=== PATIENT | male | born 1945 | race Caucasian/White ===

== ENCOUNTER → 2019-07-07 08:23 | Outpatient (BNVA) | payer MEDICARE, SELFPAY | PROVIDERS: Family Provider Family Medicine; PCP Family Medicine; Visit Provider Urology | DX: N40.1 Benign prostatic hyperplasia with lower urinary tract symptoms (principal); N39.9 Disorder of urinary system, unspecified; E29.1 Testicular hypofunction; C61 Malignant neoplasm of prostate; R39.9 Unspecified symptoms and signs involving the genitourinary system | CPT/HCPCS: 81001; 84153 ==

== ENCOUNTER → 2020-01-05 07:46 | Outpatient (BNVA) | payer MEDICARE, SELFPAY | PROVIDERS: Family Provider Family Medicine; PCP Family Medicine; Visit Provider Urology | DX: C61 Malignant neoplasm of prostate (principal); E29.1 Testicular hypofunction; R39.9 Unspecified symptoms and signs involving the genitourinary system | CPT/HCPCS: 81001; 84153 ==

== ENCOUNTER → 2020-07-10 07:58 | Outpatient (BNVA) | payer MEDICARE, SELFPAY | PROVIDERS: Family Provider Family Medicine; PCP Family Medicine; Visit Provider Urology | DX: C61 Malignant neoplasm of prostate (principal); R39.9 Unspecified symptoms and signs involving the genitourinary system; E29.1 Testicular hypofunction | CPT/HCPCS: 81003; 84153 ==

== ENCOUNTER → 2021-01-08 07:56 | Outpatient (BNVA) | payer MEDICARE, SELFPAY | PROVIDERS: Family Provider Family Medicine; PCP Family Medicine; Visit Provider Urology | DX: R97.20 Elevated prostate specific antigen [PSA] (principal); R39.9 Unspecified symptoms and signs involving the genitourinary system; C61 Malignant neoplasm of prostate; E29.1 Testicular hypofunction | CPT/HCPCS: 81003; 84153 ==

== ENCOUNTER 2022-01-10 07:07 | Outpatient (CLI) | payer MEDICARE, SELFPAY ==
[2022-01-10 08:21] LABS: Prostate Specific AG Urology 0.03 ng/mL (0-4)
== END 2022-01-10 07:08 | disposition home or self-care (01) ==
LOC: LAB 07:08
PROVIDERS: PCP Family Medicine; Visit Provider Urology
DX: C61 Malignant neoplasm of prostate (principal); R39.9 Unspecified symptoms and signs involving the genitourinary system
CPT/HCPCS: 36415; 51798; 81003; 84153; 99213

== ENCOUNTER → 2023-11-07 07:53 | Outpatient (BNVA) | payer MEDICARE, SELFPAY | PROVIDERS: PCP Registered Nurse; Visit Provider Nurse Practitioner Family | DX: L57.0 Actinic keratosis (principal); L82.1 Other seborrheic keratosis; D22.39 Melanocytic nevi of other parts of face; L91.8 Other hypertrophic disorders of the skin; B35.1 Tinea unguium | CPT/HCPCS: 17000; 99203 ==

== ENCOUNTER 2025-01-24 11:37 | Emergency (ER) | payer MEDICARE, SELFPAY ==
--- OUTSIDE RECORDS SUMMARY | 2024-06-17 03:50 | XMS_ITS ---
Author Organization [facility] Address [address] [place] [address] Care Team Providers Care Fbi Sharpshooter Name Role Phone Renu Shook Primary Care Provider Krish Gonzalez Unavailable [phone] REASON FOR VISIT RT WRIST Encounters Encounter Location Date Provider Diagnosis [facility] [address] [place] [address], [place] [address] 06/17/2024 Krish Coles Plan Of Treatment No Information Progress Notes * Pavel NAVAeDOB: [birth year] (79 yo M)Acc No.[id number]:06/17/2024 Patient: Janusz Teran Provider: Whit Coles M.D. :1945 A ge:78 Y S ex:Male Date:06/17/2024 Address:[address] [place], [place] [phone] Pcp:VANGIE Gauthier Subjective: * Chief Complaints: * R T WRIST * Electronic signature of Etienne Coles MD on 01/24/2025 at 11:44 AM CDT Sign off status: Pending * Provider: Whit Coles M.D. Date: 06/17/2024 Generated for Printi ng/Faxing/eTransmitting on: 0 01/24/2025 11:44 AM CDT
--- OUTSIDE RECORDS SUMMARY | 2024-08-06 04:50 | XMS_ITS ---
Author Organization [facility] Address [address] [place] [address] Care Team Providers Care Retail Coverage Merchandiser Lead Name Role Phone Renu Shook Primary Care Provider Krish Gonzalez Unavailable [phone] REASON FOR VISIT RT WRIST Encounters Encounter Location Date Provider Diagnosis [facility] [address] [place] [address] 08/06/2024 Krish Coles Plan Of Treatment No Information Progress Notes * BRANDYPrincexaviereDOB: [birth year] (79 yo M)Acc No.[id number]:08/06/2024 Progress Notes Patient: Janusz Teran Provider: Whit Coles M.D. :1945 A ge:78 Y S ex:Male Date:08/06/2024 Address:[address] [place], [place] [phone] Pcp:VANGIE Gauthier Subjective: * Chief Complaints: * R T WRIST Care Plan Details* * Electronic signature of Etienne Coles MD on 01/24/2025 at 11:44 AM CDT Sign off status: Pending * Provider: Whit Coles M.D. Date: 08/06/2024 Generated for Printi ng/Faxing/eTransmitting on: 0 01/24/2025 11:44 AM CDT
[2025-01-24 11:38] VITALS: BP 171/77; PULSE 57; TEMP 36.7; O2SAT 98
--- NOTE | 2025-01-24 11:44 | ECG_ITS ---
[facility]: 2025-01-24 Pat Name: Janusz German Department: Room: Gender: Male Environmental Technician: : 1945 Requested By: Hamilton Henriquez Order Number: [id number] Dorie MD: Russ Ivy M.D. Measurements Intervals [place] Rate: 56 P: 52 AL: 149 QRS: -15 QRSD: 141 T: 148 QT: 445 QTc: 431 Interpretive Statements SINUS BRADYCARDIA POSSIBLE LEFT ATRIAL ENLARGEMENT [-0.1mV P-WAVE IN V1/V2] LEFT BUNDLE BRANCH BLOCK [120+ ms QRS DURATION, 80+ ms Q/S IN V1/V2, 85+ ms R IN I/aVL/V5/V6] INTERPRETATION BASED ON A DEFAULT AGE OF 40 YEARS No previous ECG available for comparison Electronically Signed On 01-26-2025 20:18:45 CDT by Russ Ivy M.D. [email or web address]
--- OUTSIDE RECORDS SUMMARY | 2025-01-24 11:44 | XMS_ITS | Clinical Summary ---
Author Organization [facility] Address [address] [facility] Attn: Epic [place] [address] Care Team Providers Care Pointer Machine Operator Name Role Phone Haroldo Moran Primary Care Provider [phone] Allergies No known active allergies Medications losartan (COZAAR) 25 mg tabletIndications: Essential (primary) hypertension TAKE 1 TABLET BY MOUTH EVERY DAY 100 Tablet 3 5 Active lovastatin (MEVACOR) 20 mg tabletIndications: Mixed hyperlipidemia TAKE 1 TABLET BY MOUTH DAILY WITH SUPPER. 100 Tablet 3 5 Active memantine (NAMENDA) 5 mg TabletIndications: Dementia without behavioral disturbance (CMS/HCC) Take 1 Tablet (5 mg) by mouth daily. 30 Tablet 2 5 Active memantine (NAMENDA) 5 mg TabletIndications: Dementia without behavioral disturbance (CMS/HCC) Take 1 Tablet (5 mg) by mouth daily. 30 Tablet 2 5 12/29/19 25 Discontinu ed(Reorder ) Active Problems Problem Noted Date Diagnosed Date Essential (primary) hypertension 01/10/2024 Mixed hyperlipidemia 01/10/2024 History of prostate cancer 01/10/2024 Encounters Date Type Department Care Team Description 01/07/2025 Refill [facility] [address] [address] Renu Almaraz, VANGIE Essential (primary) hypertension; Mixed hyperlipidemia 01/05/2025 External Device Data STL ABSTRACTION Provider, Abstract 01/04/2025 External Device Data STL ABSTRACTION Provider, Abstract 12/30/2024 Results Follow-Up [facility] [address] [phone] Renu Almaraz FNP COMPREHENSIVE METABOLIC PANEL 12/30/2024 Results Follow-Up [facility] [address] [phone] Renu Almaraz FNP PSA, CBC WITH DIFFERENTIAL, LIPID PANEL 12/28/2024 8:00 AM CDT Office Visit [facility] [address] [address] Renu Almaraz FNP Mixed hyperlipidemia (Primary Dx); Essential (primary) hypertension; Dementia without behavioral disturbance (CMS/HCC) 12/28/2024 Orders Only Initial Department [address] [facility] [address] [place]RAEL: [place] [address] Provider, Historical 12/22/2024 External Device Data STL ABSTRACTION Provider, Abstract 12/02/2024 External Device Data STL ABSTRACTION Provider, Abstract 12/01/2024 External Device Data STL ABSTRACTION Provider, Abstract 12/01/2024 External Device Data STL ABSTRACTION Provider, Abstract 11/03/2024 External Device Data STL ABSTRACTION Provider, Abstract from Last 3 Months Immunizations Immunization Administration Dates Next Due (PREVNAR 13)(6 WKS UP) PNEUM OCOCCAL CONJUGATE (PCV13) 0.5 ML, IM 05/29/2017 (PREVNAR 20)(6 WKS UP) PNEUM OCOCCAL CONJUGATE VACCINE 20-VALENT (PCV20), POLYSACCHARIDE DRE879 CONJUGATE, ADJUVANT 0.5 ML (PF) IM 07/12/2024 Influenza Seasonal Unspecifi ed Formulation IM 03/06/2023,02/15/2022,02/16/2021,04/10 Family History Medical History Relation Name Comments Emphysema Father Alzheimer's Disease Mother Diabetes Sister Relation Name Status Comments Father Mother Sister Social History Tobacco Use Types Packs/Day Years Used Date Smoking Tobacco: Former Cigarettes 2 38.4 0 05/19/1959 - 09/25/1997 Smokeless Tobacco: Never Tobacco Cessation:Counseling Given: Not Answered Alcohol Use Standard Drinks/Week Comments Yes 0 (1 standard drink = 0.6 oz pur e alcohol) very little Sex and Gender Information Value Date Recorded Sex Assigned at Not on file Legal Sex Male 7:34 AM CARE AID Gender Identity Not on file Sexual Orientation Not on file Last Filed Vital Signs Vital Sign Reading Time Taken Comments Blood Pressure 122/70 12/28/2024 8:00 AM CDT Pulse 80 12/28/2024 8:00 AM CDT Temperature 36.5 C (97.7 F) 12/28/2024 8:00 AM CDT Respiratory Rate 16 12/28/2024 8:00 AM CDT Oxygen Saturation 99% 12/28/2024 8:00 AM CDT Inhaled Oxygen Concentration - - Weight 77.7 kg (171 lb 3.2 oz) 12/28/2024 8:00 A M CDT Height 177.8 cm (5' 10 ) 12/28/2024 8:00 AM CDT Body Mass Index 24.56 12/28/2024 8:00 AM CDT Plan of Treatment Upcoming Encounters Date Type Department Care Team (Late st Contact Info) Description 03/30/2025 2:20 PM CARE AID Office Visit [facility] [address] [place] [phone] Haroldo Moran, [address] [phone] Health Maintenance Due Date Last Done Comments DTAP/TDAP/TD VACCINES (1 - Tdap) 09/15/1962 ZOSTER VACCINE (1 of 2) 09/15/1993 RSV VACCINE (60+ or ) (1 - 1-dose 75+ series) 09/15/2018 INFLUENZA VACCINE (#1) 2024 3, 02/15/2022, 02/16/2021, Additional history exists COVID-19 Vaccine (2 - 2024-2 6 season) 2025 10/06/2020 [place] Preventative Visit/Annual Wellness Visit Completed 07/12/2024 PNEUMOCOCCAL VACCINE 50+ YEARS Completed 07/12/2024 , 05/29/2017 Procedures Procedure Name Priority Date/Time Associated Diagnosis Comments LIPID PANEL Routine 12/28/2024 8:36 AM CDT CBC WITH DIFFERENTIAL Routine 12/28/2024 8:36 AM CDT PSA Routine 12/28/2024 8:36 AM CDT COMPREHENSIVE METABOLIC PANEL Routine 12/28/2024 8:35 AM CDT Essential (primary) hypertension from Last 3 Months Results * (ABNORMAL) CBC WITH DIFFERENTIAL (12/28/2024 8:36 AM CDT) Pathologist [facility] WBC 5.1 3.8 - 10.8 Thousand/u L [facility] RBC 4.36 4.20 - 5.80 Million/uL [facility] HEMOGLOBIN 13.0(L) 13.2 - 17.1 g/dL [facility] HEMATOCRIT 39.7 38.5 - 50.0 % [facility] MCV 91.1 80.0 - 100.0 fL [facility] MCH 29.8 27.0 - 33.0 pg [facility] MCHC 32.7 32.0 - 36.0 g/dL [facility] Comment: For adults, a slight decrease in the calculated MCHC value (in the range of 30 to 32 g/dL) is most likely not clinically significant; however, it should be interpreted with caution in correlation with other red cell parameters and the patient's clinical condition. RDW 13.9 11.0 - 15.0 % [facility] PLATELETS 148 140 - 400 Thousand/u L [facility] MPV 10.7 7.5 - 12.5 fL [facility] NEUTROPHIL ABSOLUTE 3,820 1,500 - 7,800 cells/uL [facility] LYMPHOCYTE ABSOLUTE 882 850 - 3,900 cells/uL [facility] MONOCYTE ABSOLUTE 306 200 - 950 cells/uL [facility] EOSINOPHIL ABSOLUTE 82 15 - 500 cells/uL [facility] BASOPHILS ABSOLUTE 10 0 - 200 cells/uL [facility] NEUTROPHIL 74.9 % [facility] LYMPHOCYTES 17.3 % [facility] MONOCYTE 6.0 % [facility] EOSINOPHILS 1.6 % [facility] BASOPHILS 0.2 % [facility] Comment: FASTING:YES FASTING: YES Test Performed at: [facility] [address] [address], [place] [address] ShaylaRadha Quigley MD 12/28/2024 8:36 AM CDT 12/28/2024 8:37 AM CDT Renu FELIXP HEMATOLOGY ORDERABLES Final R esult Performing Organization Address City/[facility]/ZIP Co de Phone Number [facility] [phone] [facility] [address] [place] [address] * PSA (12/28/2024 8:36 AM CDT) PSA 0.05 < OR = 4.00 ng/mL [facility] Comment: The total PSA value from this assay system is standardized against the WHO standard. The test result will be approximately 20% lower when compared to the equimolar-standardized total PSA (Dayna Alton). Comparison of serial PSA results should be interpreted with this fact in mind. This test was performed using the Siemens chemiluminescent method. Values obtained from different assay methods cannot be used interchangeably. PSA levels, regardless of value, should not be interpreted as absolute evidence of the presence or absence of disease. FASTING:YES FASTING: YES Test Performed at: [facility] [address] [facility] [place] [address] [facility] Quigley MD 12/28/2024 8:36 AM CDT 12/28/2024 8:37 AM CDT Renu FELIXP CHEMISTRY ORDERABLES Final Re sult [facility] [phone] [facility] [address] [facility] [place] [address] * LIPID PANEL (12/28/2024 8:36 AM CDT) CHOLESTEROL 175 <200 mg/dL [facility] HDL 64 > OR = 40 mg/dL [facility] TRIGLYCERIDE 109 <150 mg/dL [facility] LDL CALCULATED 90 mg/dL (calc) [facility] Comment: Reference range: <100 Desirable range <100 mg/dL for primary prevention; <70 mg/dL for patients with CHD or diabetic patients with > or = 2 CHD risk factors. LDL-C is now calculated using the Paola calculation, which is a validated novel method providing better accuracy than the Friedewald equation in the estimation of LDL-C. Antonio SS et al. ANA. 2013;310(19): 3461-0206 (http://education.Docracy/faq/JMF331) CHOL/HDL RATIO 2.7 <5.0 (calc) [facility] NON-HDL CHOLESTEROL 111 <130 mg/dL (calc) [facility] Comment: For patients with diabetes plus 1 major ASCVD risk factor, treating to a non-HDL-C goal of <100 mg/dL (LDL-C of <70 mg/dL) is considered a therapeutic option. FASTING:YES FASTING: YES Test Performed at: [facility] [address] [place] [phone] Soren Quigley MD 12/28/2024 8:36 AM CDT 12/28/2024 8:37 AM CDT us Renu Almaraz GATE SERVICES SUPERVISOR CHEMISTRY ORDERABLES Final Re sult [facility] [phone] [facility] [address] * COMPREHENSIVE METABOLIC PANEL (12/28/2024 8:35 AM CDT) GLUCOSE 93 65 - 99 mg/dL [facility] Comment: Fasting reference interval BUN 16 7 - 25 mg/dL [facility] CREATININE 1.15 0.70 - 1.22 mg/dL [facility] GFR 64 > OR = 60 mL/min/1. 73m2 [facility] BUN/CREAT RATIO SEE NOTE: 6 - 22 (calc) [facility] Comment: Not Reported: BUN and Creatinine are within reference range. SODIUM 140 135 - 146 mmol/L [facility] POTASSIUM 4.3 3.5 - 5.3 mmol/L [facility] CHLORIDE 106 98 - 110 mmol/L [facility] CO2 27 20 - 32 mmol/L [facility] CALCIUM 9.3 8.6 - 10.3 mg/dL [facility] TOTAL PROTEIN 6.4 6.1 - 8.1 g/dL [facility] ALBUMIN 4.2 3.6 - 5.1 g/dL [facility] GLOBULIN 2.2 1.9 - 3.7 g/dL (calc) [facility] ALBUMIN/GLOBULIN RATIO 1.9 1.0 - 2.5 (calc) [facility] BILIRUBIN TOTAL 0.8 0.2 - 1.2 mg/dL [facility] ALKALINE PHOSPHATASE 49 35 - 144 U/L [facility] AST 15 10 - 35 U/L [facility] ALT 11 9 - 46 U/L [facility] Comment: FASTING:YES FASTING: YES Test Performed at: [facility] [address] [address] [address] Soren Quigley MD Blood 12/28/2024 8:35 AM CDT 12/28/2024 8:35 AM CDT us Renu Almaraz GATE SERVICES SUPERVISOR CHEMISTRY ORDERABLES Final Re sult [facility] [phone] [facility] [address] [address] [place] [phone] from Last 3 Months Insurance [employer] PPO MCR Advance Directives For more information, please contact: [phone] Documents on File Type Date Recorded 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
--- OUTSIDE RECORDS SUMMARY | 2025-01-24 11:44 | XMS_ITS | Encounter Summary ---
Author Organization [facility] Address [address] [place] [address] Care Team Providers Care Class A Lineman Name Role Phone Haroldo Moran DO Primary Care Provider Encounter Details Date Type Department Care Team (Late st Contact Info) Description 12/30/2024 Results Follow-Up [facility] [address] [phone] Renu Almaraz, SOLE CONDITIONER [address] [place] [phone] PSA, CBC WITH DIFFERENTIAL, LIPID PANEL Social History Tobacco Use Types Packs/Day Years Used Date Smoking Tobacco: Former Cigarettes 2 38.4 0 05/19/1959 - 09/25/1997 Smokeless Tobacco: Never Alcohol Use Standard Drinks/Week Comments Yes 0 (1 standard drink = 0.6 oz pur e alcohol) very little Sex and Gender Information Value Date Recorded Sex Assigned at Not on file Legal Sex Male 7:34 AM WEFT 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 Gender Identity Not on file Sexual Orientation Not on file documented as of this encounter Plan of Treatment Upcoming Encounters Date Type Department Care Team (Late st Contact Info) Description 03/30/2025 2:20 PM WEFT 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 Office Visit [address] [phone] Haroldo Moran DO [address] [place] [phone] documented as of this encounter Visit Diagnoses Not on filedocumented in this encounter Care Teams Class A Lineman Relationship Specialty Start Date End Date Haroldo Moran DO [address] [place] [address] PCP - General Family Practice 01/12/24 documented as of this encounter
--- OUTSIDE RECORDS SUMMARY | 2025-01-24 11:44 | XMS_ITS | Encounter Summary ---
Author Organization [facility] Address [address] [place] [address] Care Team Providers Care Surveillance Specialist Name Role Phone Haroldo Moran DO Primary Care Provider [phone] Encounter Details Date Type Department Care Team (Latest Contact Info) Description 12/30/2024 Results Follow-Up [facility] [address] [phone] Renu Almaraz, SUPERVISOR PAPER PRODUCTS [address] [place] [phone] COMPREHENSIVE METABOLIC PANEL Social History Tobacco Use Types Packs/Day Years Used Date Smoking Tobacco: Former Cigarettes 2 38.4 0 05/19/1959 - 09/25/1997 Smokeless Tobacco: Never Alcohol Use Standard Drinks/Week Comments Yes 0 (1 standard drink = 0.6 oz pur e alcohol) very little Sex and Gender Information Value Date Recorded Sex Assigned at Not on file Legal Sex Male 7:34 AM FORESTRY FACULTY 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 Gender Identity Not on file Sexual Orientation Not on file documented as of this encounter Plan of Treatment Upcoming Encounters Date Type Department Care Team (Late st Contact Info) Description 03/30/2025 2:20 PM FORESTRY FACULTY MEMBER Office Visit [facility] [address] [phone] Haroldo Moran DO [address] [place] [phone] documented as of this encounter Visit Diagnoses Not on filedocumented in this encounter Care Teams Surveillance Specialist Relationship Specialty Start Date End Date Haroldo Moran DO [address] [place] [address] PCP - General Family Practice 01/12/24 documented as of this encounter
--- OUTSIDE RECORDS SUMMARY | 2025-01-24 11:45 | XMS_ITS | Patient Health Record ---
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 Name Role Phone Renu Shook Primary Care Provider Wai Coles Any Unavailable [phone] UniqueArsh padilla Unavailable [phone] Alirhayim Kelvin Unavailable [phone] Allergies No Known Allergies Results Component Value Reference Range Flag Notes Basic Metabolic Panel (BMP) [id number] Reviewed date:02/16/2024 04:40:31 PM Interpretation: Performing Lab: Notes/Report: PRESURGICAL TESTING;DIAGNOSIS; HYPERTENSION Sodium 139 136-145 MMOL/L Potassium 4.2 3.5-5.1 MMOL/L Chloride 107 98-107 MMOL/L CO2 24.9 20.0-31.0 MMOL/L Glucose Serum 97 71-110 MG/DL Testing p erformed at [facility], [address] [place] [address] [place] [address]. CLIA ID#: [id number] BUN 14 7-21 MG/DL Creat 1.22 .57-1.17 MG/DL HI W-mxwmuj-e-benzoquino ne imine (NAPQI) is a metabolite of acetaminophen, NAPQI concentrations of apparoximately 10 mg/L correlation to toxic levels of acetaminophen demonstrates a greater than or equil to 10% change in results. NAPQI concentrations greater than this may lead to falsely depressed results for patient samples. Use of this assay is not recommended for patients undergoing treatment with phenindione, due to the potential for falsely depressed results. GFR 59.8 NA Calculation pe rformed from GFR calculator provided by the [employer]. Glomerular Filtration rate(GRF) is the best overall index of kidney function. Normal GFR varies according to age,sex, body size, and declines with age. The National Kid[employer] Foundation recommends using the CKD-EPI Creatinine Equation(2020) to estimate GFR. Anion Gap 11 5-15 BUN/Creat Ratio 11.5 12.0-20.0 % LOW Calcium 9.2 8.7-10.4 MG/DL Osmo Serum,Calculated 288 280-300 MOSM/KG CBC w\ Auto Diff 20024 Reviewed date:02/16/2024 04:40:31 PM Interpretation: Performing Lab: Notes/Report: PRESURGICAL TESTING;DIAGNOSIS; HYPERTENSION WBC 4.8 4.5-11.0 X10'3 RBC 4.58 4.50-5.90 X10'6 Hgb 13.6 13.5-17.5 G/DL Hct 39.4 41.0-53.0 % LOW MCV 86.0 80.0-100.0 FL MCH 29.7 27.0-31.0 PG MCHC 34.5 31.0-37.0 G/DL Platelet 169 150-400 X10'3 RDW-SD 44.6 35.0-49.0 FL RDW-CV 14.1 12.2-15.6 % MPV 10.0 9.2-12.0 FL Neutro Auto% 65.8 40.0-70.0 % Lymph Auto% 24.9 22.0-44.0 % Miller Auto% 6.6 3.0-7.0 % Eos Auto% 2.1 2.0-4.0 % Baso Auto% 0.4 0.0-1.0 % Imm Gran% .2 .0-.4 % Neutro Abs 3.17 .80-7.70 Absolute Neutrophil Count 3170 NA Lymph Abs 1.20 .10-4.10 Miller Abs .32 .20-1.00 Eos Abs .10 .00-.40 Baso Abs .02 .00-.20 Imm Gran Abs .01 .00-.10 NRBC# .00 .00-.20 NRBC% .00 .00-.20 /100 intact WBC's Basic Metabolic Panel (BMP) [id number] Reviewed date:06/02/2024 03:07:20 PM Interpretation: Performing Lab: Notes/Report: Sodium 138 136-145 MMOL/L Potassium 4.0 3.5-5.1 MMOL/L Chloride 108 98-107 MMOL/L HI CO2 23.3 20.0-31.0 MMOL/L Glucose Serum 98 71-110 MG/DL Testing p rod at [address] Herlinda [place], [place] [address]. CLIA ID#: [id number] BUN 13 7-21 MG/DL Creat 1.14 .57-1.17 MG/DL G-qaqcqh-v-benzoquino ne imine (NAPQI) is a metabolite of acetaminophen, NAPQI concentrations of apparoximately 10 mg/L correlation to toxic levels of acetaminophen demonstrates a greater than or equil to 10% change in results. NAPQI concentrations greater than this may lead to falsely depressed results for patient samples. Use of this assay is not recommended for patients undergoing treatment with phenindione, due to the potential for falsely depressed results. GFR 64.8 NA Calculation pe rformed from GFR calculator provided by the National [employer]. Glomerular Filtration rate(GRF) is the best overall index of kidney function. Normal GFR varies according to age,sex, body size, and declines with age. The National Kid[employer] Foundation recommends using the CKD-EPI Creatinine Equation(2020) to estimate GFR. Anion Gap 11 5-15 BUN/Creat Ratio 11.4 12.0-20.0 % LOW Calcium 9.6 8.7-10.4 MG/DL Osmo Serum,Calculated 286 280-300 MOSM/KG Echo Complete [id number] Reviewed date:05/04/2024 08:49:22 AM Interpretation: Performing Lab: Notes/Report: Cardiopulmonary Services Name: JANUSZ NAVA Study Date: 03/15/2024 : 1945 Patient Location: [facility] Age: 78 yrs Gender: Male HR: 64 Reason For Study: pre-op Interpretation Summary Left ventricular systolic function is low normal. Left Ventricular Function is estimated to be 50-55%. There is trace mitral regurgitation. There is mild tricuspid regurgitation. Right ventricular systolic pressure is elevated at 30-40mmHg. There is mild concentric left ventricular hypertrophy. Recommendations Continue present medication. Will continue to follow regularly. Left Ventricle The left ventricle is normal in size. There is mild concentric left ventricular hypertrophy. Left Ventricular Function is estimated to be 50-55%. Left ventricular systolic function is low normal. The left ventricular wall motion is normal. Right Ventricle The right ventricle is normal in size and function. Atria The left atrial size is normal. Right atrial size is normal. The interatrial septum is intact with no evidence for an atrial septal defect. Great Vessels The aortic root is not well visualized. The pulmonary is not well visualized. Pericardium/Pleural There is no pericardial effusion. There is no pleural effusion. Mitral Valve The mitral valve is normal in structure and function. There is trace mitral regurgitation. Aortic Valve The aortic valve is normal in structure and function. Tricuspid Valve The tricuspid valve is normal. There is mild tricuspid regurgitation. Right ventricular systolic pressure is elevated at 30-40mmHg. Pulmonic Valve The pulmonic valve leaflets are thin and pliable; valve motion is normal. Mild pulmonic valvular regurgitation. MMode/2D Measurements & Calculations RVDd: 3.2 cm LVIDd: 4.1 cm FS: 25.4 % IVSd: 1.2 cm LVIDs: 3.0 cm EDV(Teich): 73.4 ml LVPWd: 1.1 cm ESV(Teich): 36.3 ml EF(Teich): 50.6 % Ao root diam: 3.6 cm asc Aorta Diam: 3.4 cm LVOT diam: 1.9 cm Ao root area: 10.0 cm2 LVOT area: 2.7 cm2 ACS: 1.9 cm Time Measurements MM HR: 58.9 BPM Doppler Measurements & Calculations MV E max liliana: 65.3 cm/sec Ao V2 max: 123.8 cm/sec MV A max liliana: 112.7 cm/sec MV dec slope: 205.0 cm/sec2 Ao max P.1 mmHg MV E/A: 0.58 MV dec time: 0.32 sec Ao V2 mean: 86.4 cm/sec Ao mean P.3 mmHg Ao V2 VTI: 26.0 cm GEOFFREY(I,D): 2.8 cm2 GEOFFREY(V,D): 2.3 cm2 LV V1 max P.5 mmHg SV(LVOT): 72.1 ml PA V2 max: 125.9 cm/sec LV V1 mean P.5 mmHg PA max P.3 mmHg LV V1 max: 106.0 cm/sec PA V2 mean: 93.3 cm/sec LV V1 mean: 73.8 cm/sec PA mean P.8 mmHg LV V1 VTI: 26.4 cm TR max liliana: 273.8 cm/sec RAP systole: 5.0 mmHg TR max P.0 mmHg RVSP(TR): 35.0 mmHg Ordering Physician: Arsh Carpenter Referring Physician: Arsh Carpenter Performed By: Dakota Mcelroy US Carotid Doppler Bilateral -[id number] Reviewed date:09/07/2024 10:43:56 AM Interpretation: Performing Lab: Notes/Report: See Below For Report US Carotid Doppler Bilateral Read See Below For Report US Carotid Doppler Bilateral -[id number] Reviewed date:03/26/2024 07:39:30 AM Interpretation: Performing Lab: Notes/Report: CHAD Mitchell Cardiolite-[id number] Reviewed date:05/04/2024 08:48:27 AM Interpretation: Performing Lab: Notes/Report: See Below For Report NM Paula Cardiolite Read See Below For Report Echo Complete [id number] Reviewed date:03/01/2024 02:13:41 PM Interpretation: Performing Lab: Notes/Report: NM Paula Cardiolite-[id number] Reviewed date:03/01/2024 02:14:58 PM Interpretation: Performing Lab: Notes/Report: US Carotid Doppler Bilateral -[id number] Reviewed date:04/01/2024 04:39:23 PM Interpretation: Performing Lab: Notes/Report: Electrocardiogram (EKG) - 93 000 Reviewed date:03/01/2024 03:40:55 PM Interpretation: Performing Lab: Notes/Report: NM Bernardoiscan Cardiolite-[id number] Reviewed date:05/04/2024 08:48:35 AM Interpretation: Performing Lab: Notes/Report: [id number] Echo Complete [id number] Reviewed date:03/15/2024 12:31:49 PM Interpretation: Performing Lab: Notes/Report: [id number] Reason For Referral Reason Evaluate and treat f or recent abnormal EKG. Will need cardiac clearance for right hand carpel tunnel surgery Diagnosis 1 Abnormal electrocard iogram [ECG] [EKG] (R94.31) Referral Organization [facility] Referring Provider First Name Any Referring Provider Last Name Radha Referring Provider Speciality Orthopedic Surgery [facility] Special[facility]iology General Notes Neli Best 03/2024 12:16:39 PM >Scheduled for 1945, Neli Best 02/27/2024 12:16:57 PM >Scheduled for 03/01/2024 Referral Priority Routine Reason Appt 03/01/24 Eval uate and treat for recent abnormal EKG. Will need cardiac clearance for right hand carpel tunnel surgery. Diagnosis 1 Abnormal electrocard iogram [ECG] [EKG] (R94.31) Referring Provider First Name ANY Referring Provider Last Name RADHA Referring Provider Speciality Orthopedic Surgery Referred Organization [facility] Referred Provider Kelvin Aguila Referred Address [address],[place],[address], Referred Provider Specialty Intervention al Cardiology Referral Priority Routine Medications Medication SIG (Take, Route, Frequency, Duration) Notes Start Date End Date Status Lovastatin 20 MG Tablet 1 tablet with th e evening meal Orally Once a day Active Losartan Potassium 25 MG Tablet 1 tablet Orally Once a day A ctive Aspirin 81 MG Tablet Delayed Release 1 tablet Orally Once a day; Duration: 30 days 04/21/2024 Active Social History Tobacco Use: Social History Observation Description Date Details (start date - stop date) Former Smoker NA - NA Social History Drugs/Alcohol: Social Info Question Answer Notes Caffeine Intake: 3-4 cups per day Tobacco Use: Social Info Question Answer Notes Tobacco Control (Standard) Tobacco use: Former smoker Section Notes: admits caffeine denies alcohol past alcohal consumption past smoker past alcohal consumption admits caffeine denies alcohol past alcohal consumption admits caffeine denies alcohol past alcohal consumption admits caffeine denies alcohol past alcohal consumption Problems Problem Type SNOMED Code ICD Code Onset Dates Problem Status W/U Status Risk Notes Problem Mixed hyperlipidemia (133951900) Mixed hyperlipidemia (E78.2) Active confirmed Problem Mitral valve disorder (77072354) Nonrheumatic mitral (valve) insufficiency (I34.0) Active confirmed Problem Essential hypertension (63968915) Essential hypertension (I10) Active confirmed Problem Atherosclerotic heart disease of [place] coronary artery without angina pectoris (916414636887051) Coronary artery disease involving [place] coronary artery of [place] heart without angina pectoris (I25.10) Active confirmed Problem Left bundle branch block (40032434) Left bundle branch block (LBBB) (I44.7) Active confirmed Problem Carpal tunnel syndrome (10280578) Right carpal tunnel syndrome (G56.01) Active confirmed Problem Localized, primary osteoarthritis of the hand (508481298) Arthritis of carpometacarpal (CMC) joint of right thumb (M18.11) Active confirmed Problem Carpal tunnel syndrome (16640374) Acute carpal tunnel syndrome of right wrist (G56.01) Active confirmed Vital Signs Heart Rate 65 /min 08/20/2024 Height-cm 177.8 cm 08/20/2024 Oximetry 99 % 08/20/2024 Blood pressure diastolic 72 mm Hg 08/20/2024 Weight-kg 80.2 kg 04/21/2024 Height 70 in 08/20/2024 Blood pressure systolic 134 mm Hg 08/20/2024 Weight 176.8 lbs 04/21/2024 BMI 25.37 kg/m2 04/21/2024 Encounters Encounter Location Date Provider Diagnosis [facility] [address] [place] [address] 01/30/2024 Any Coles Right carpal tunnel syndrome G56.01 ; Arthritis of carpometacarpal (CMC) joint of right thumb M18.11 and 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 [facility] [address] [place] [address] 06/25/2024 Any Coles Status post endoscop ic carpal tunnel release Z98.890 [facility] [address] [place] [address], [place] [address] 03/31/2024 [facility] [address] [place] [address] 03/15/2024 [facility] [address] [place] [address] 04/21/2024 [facility] Coronary artery disease involving [place] coronary artery of [place] heart without angina pectoris I25.10 ; Essential hypertension I10 and Mixed hyperlipidemia E78.2 [facility] [address] [place] [address], [place] [address] 03/17/2024 [facility] [address] [place] [address] 03/01/2024 Arsh Carpenter Abnormal EKG R94.31 ; Encounter for pre-operative cardiovascular clearance Z01.810 ; Right carpal tunnel syndrome G56.01 ; Left bundle branch block (LBBB) I44.7 ; Essential hypertension I10 ; Mixed hyperlipidemia E78.2 ; SOB (shortness of breath) on exertion R06.02 ; History of tobacco use Z87.891 and Heart murmur R01.1 [facility] [address] [place] [address], [place] [address] 06/02/2024 Any Coles Encounter for remova l of sutures Z48.02 [facility] [address] [place] [address] 08/20/2024 Any Coles Status post endoscop ic carpal tunnel release Z98.890 [facility] [address] [place] [address] 05/26/2024 Any Coles [facility] [address] [place] [address] 04/26/2024 Any [facility] [address] [place] [address], [place] [address] 04/06/2024 [facility] [address] [place] [address], [place] [address] 03/25/2024 Arsh Pauline Nonrheumatic mitral (valve) insufficiency I34.0 ; Abnormal EKG R94.31 ; Essential hypertension I10 and History of tobacco use Z87.891 [facility] [address] [place] [address], [place] [address] 03/18/2024 [facility] [address] [place] [address], [place] [address] 03/16/2024 [facility] [address] [place] [address] 03/08/2024 Any [facility] [address] [place] [address] 02/25/2024 Any Coles [facility] [address] [place] [address] 02/16/2024 Any Coles Assessments Encounter Date Diagnosis (ICD Code) Assessment Notes Treatment Notes Treatment Clinical Notes Section Notes 03/01/2024 Abnormal EKG (ICD-10 - R94.31) ECG today-normal sinus rhythm with left bundle branch block 1. Preoperative cardiovascular risk assessment-RCRI risk score of 0. He has no history of CAD, CKD, CVA or diagnosis of heart failure. ECG shows a left bundle branch block. Given the low cardiac risk of carpal tunnel release surgery, he may proceed for the planned surgery without awaiting the results of his cardiac testing. 2. Exertional dyspnea / suspected atherosclerotic CAD-he is a former smoker with history of exertional shortness of breath for the last month or so. I am going to recommend an echocardiogram and pharmacological stress MPI. I will also get bilateral carotid Doppler 3. Prior tobacco abuse-will obtain US for AAA screen. 4. HTN- on losartan 25 mg po daily. No changes today. 5. Mixed Hyperlipidemia-Pa cheri is currently taking a statin. FU in 2 months 03/01/2024 Encounter for pre-operative cardiovascular clearance (ICD-10 - Z01.810) ECG today-normal sinus rhythm with left bundle branch block 1. Preoperative cardiovascular risk assessment-RCRI risk score of 0. He has no history of CAD, CKD, CVA or diagnosis of heart failure. ECG shows a left bundle branch block. Given the low cardiac risk of carpal tunnel release surgery, he may proceed for the planned surgery without awaiting the results of his cardiac testing. 2. Exertional dyspnea / suspected atherosclerotic CAD-he is a former smoker with history of exertional shortness of breath for the last month or so. I am going to recommend an echocardiogram and pharmacological stress MPI. I will also get bilateral carotid Doppler 3. Prior tobacco abuse-will obtain US for AAA screen. 4. HTN- on losartan 25 mg po daily. No changes today. 5. Mixed Hyperlipidemia-Pa cheri is currently taking a statin. FU in 2 months 01/30/2024 Right carpal tunnel syndrome (ICD-10 - G56.01) 's individual has pronounced carpal tunnel syndrome of the right hand. He has thenar atrophy and decreased sensation thumb, index, middle and radial half of the ring finger. I have told him we can proceed on with nerve conduction studies. However he and his daughter asked if I can proceed on with a carpal tunnel release because his symptoms are so pronounced. I personally think this is appropriate. We will schedule for endoscopic carpal tunnel release right hand. Risk factors: Hypertension under good control. 01/30/2024 Arthritis of carpometacarpal (CMC) joint of right thumb (ICD-10 - M18.11) I have gone over x-ray findings with this individual. We will manage this problem conservatively for the time being. 03/25/2024 Nonrheumatic mitral (valve) insufficiency (ICD-10 - I34.0) 03/25/2024 Abnormal EKG (ICD-10 - R94.31) 04/21/2024 Coronary artery disease involving [place] coronary artery of [place] heart without angina pectoris (ICD-10 - I25.10) 1. CAD-while he has no prior history of CAD or symptoms, his MPI showed Abnormal myocardial perfusion, with a small to medium sized area of infarction with manny-infarct ischemia in the apical septal wall. He remains asymptomatic without chest pain or exertional fatigue or shortness of breath. I am going to recommend to proceed with the planned carpal tunnel surgery without additional precautions. We are going to initiate aspirin 81 mg p.o. daily. He will continue on lovastatin. 2. Hypertension-cont rolled echocardiogram is complete; largely within normal limits. 3. Hyperlipidemia-on lovastatin Follow-up in 6 months. 04/21/2024 Essential hypertension (ICD-10 - I10) 1. CAD-while he has no prior history of CAD or symptoms, his MPI showed Abnormal myocardial perfusion, with a small to medium sized area of infarction with manny-infarct ischemia in the apical septal wall. He remains asymptomatic without chest pain or exertional fatigue or shortness of breath. I am going to recommend to proceed with the planned carpal tunnel surgery without additional precautions. We are going to initiate aspirin 81 mg p.o. daily. He will continue on lovastatin. 2. Hypertension-cont rolled echocardiogram is complete; largely within normal limits. 3. Hyperlipidemia-on lovastatin Follow-up in 6 months. 06/02/2024 Encounter for removal of sutures (ICD-10 - Z48.02) Patient was in for suture removal after right endoscopic carpal tunnel release surgery on 05/26/2024. Patient was made comfortable in exam room. Dressings were removed. Incision site(s) was/were examined and no redness or inflammation was noted with incision edges well approximated. Incision site(s) was/were cleaned with alcohol and allowed to dry. Sutures were removed with no discomfort to patient and steri-strips were applied. Aftercare education was given and patient verbalized understanding. All questions and concerns were addressed. A follow up appointment was made. Nayan Galvez MA 06/25/2024 Status post endoscopic carpal tunnel release (ICD-10 - Z98.890) Costello is a few days out from endoscopic carpal tunnel release. His portal sites are absolutely clean. He may use his hand as he wishes. Were going to recheck in 6 weeks for follow-up and to check on sensory return. 08/20/2024 Status post endoscopic carpal tunnel release (ICD-10 - Z98.890) This individual is improved since his last visit. He is very happy with his result at this time. Will recheck on a as needed basis 04/21/2024 Mixed hyperlipidemia (ICD-10 - E78.2) 1. CAD-while he has no prior history of CAD or symptoms, his MPI showed Abnormal myocardial perfusion, with a small to medium sized area of infarction with manny-infarct ischemia in the apical septal wall. He remains asymptomatic without chest pain or exertional fatigue or shortness of breath. I am going to recommend to proceed with the planned carpal tunnel surgery without additional precautions. We are going to initiate aspirin 81 mg p.o. daily. He will continue on lovastatin. 2. Hypertension-cont rolled echocardiogram is complete; largely within normal limits. 3. Hyperlipidemia-on lovastatin Follow-up in 6 months. 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 Clinodactyly because of degenerative changes are present as well. Conservative management. 03/01/2024 Right carpal tunnel syndrome (ICD-10 - G56.01) ECG today-normal sinus rhythm with left bundle branch block 1. Preoperative cardiovascular risk assessment-RCRI risk score of 0. He has no history of CAD, CKD, CVA or diagnosis of heart failure. ECG shows a left bundle branch block. Given the low cardiac risk of carpal tunnel release surgery, he may proceed for the planned surgery without awaiting the results of his cardiac testing. 2. Exertional dyspnea / suspected atherosclerotic CAD-he is a former smoker with history of exertional shortness of breath for the last month or so. I am going to recommend an echocardiogram and pharmacological stress MPI. I will also get bilateral carotid Doppler 3. Prior tobacco abuse-will obtain US for AAA screen. 4. HTN- on losartan 25 mg po daily. No changes today. 5. Mixed Hyperlipidemia-Terrance alonzo is currently taking a statin. FU in 2 months 03/01/2024 Left bundle branch block (LBBB) (ICD-10 - I44.7) ECG today-normal sinus rhythm with left bundle branch block 1. Preoperative cardiovascular risk assessment-RCRI risk score of 0. He has no history of CAD, CKD, CVA or diagnosis of heart failure. ECG shows a left bundle branch block. Given the low cardiac risk of carpal tunnel release surgery, he may proceed for the planned surgery without awaiting the results of his cardiac testing. 2. Exertional dyspnea / suspected atherosclerotic CAD-he is a former smoker with history of exertional shortness of breath for the last month or so. I am going to recommend an echocardiogram and pharmacological stress MPI. I will also get bilateral carotid Doppler 3. Prior tobacco abuse-will obtain US for AAA screen. 4. HTN- on losartan 25 mg po daily. No changes today. 5. Mixed Hyperlipidemia-Terrance alonzo is currently taking a statin. FU in 2 months 03/25/2024 History of tobacco use (ICD-10 - Z87.891) 03/01/2024 Essential hypertension (ICD-10 - I10) ECG today-normal sinus rhythm with left bundle branch block 1. Preoperative cardiovascular risk assessment-RCRI risk score of 0. He has no history of CAD, CKD, CVA or diagnosis of heart failure. ECG shows a left bundle branch block. Given the low cardiac risk of carpal tunnel release surgery, he may proceed for the planned surgery without awaiting the results of his cardiac testing. 2. Exertional dyspnea / suspected atherosclerotic CAD-he is a former smoker with history of exertional shortness of breath for the last month or so. I am going to recommend an echocardiogram and pharmacological stress MPI. I will also get bilateral carotid Doppler 3. Prior tobacco abuse-will obtain US for AAA screen. 4. HTN- on losartan 25 mg po daily. No changes today. 5. Mixed Hyperlipidemia-Terrance alonzo is currently taking a statin. FU in 2 months 03/01/2024 Mixed hyperlipidemia (ICD-10 - E78.2) ECG today-normal sinus rhythm with left bundle branch block 1. Preoperative cardiovascular risk assessment-RCRI risk score of 0. He has no history of CAD, CKD, CVA or diagnosis of heart failure. ECG shows a left bundle branch block. Given the low cardiac risk of carpal tunnel release surgery, he may proceed for the planned surgery without awaiting the results of his cardiac testing. 2. Exertional dyspnea / suspected atherosclerotic CAD-he is a former smoker with history of exertional shortness of breath for the last month or so. I am going to recommend an echocardiogram and pharmacological stress MPI. I will also get bilateral carotid Doppler 3. Prior tobacco abuse-will obtain US for AAA screen. 4. HTN- on losartan 25 mg po daily. No changes today. 5. Mixed Hyperlipidemia-Pa cheri is currently taking a statin. FU in 2 months 03/01/2024 SOB (shortness of breath) on exertion (ICD-10 - R06.02) ECG today-normal sinus rhythm with left bundle branch block 1. Preoperative cardiovascular risk assessment-RCRI risk score of 0. He has no history of CAD, CKD, CVA or diagnosis of heart failure. ECG shows a left bundle branch block. Given the low cardiac risk of carpal tunnel release surgery, he may proceed for the planned surgery without awaiting the results of his cardiac testing. 2. Exertional dyspnea / suspected atherosclerotic CAD-he is a former smoker with history of exertional shortness of breath for the last month or so. I am going to recommend an echocardiogram and pharmacological stress MPI. I will also get bilateral carotid Doppler 3. Prior tobacco abuse-will obtain US for AAA screen. 4. HTN- on losartan 25 mg po daily. No changes today. 5. Mixed Hyperlipidemia-Pa cheri is currently taking a statin. FU in 2 months 03/01/2024 History of tobacco use (ICD-10 - Z87.891) ECG today-normal sinus rhythm with left bundle branch block 1. Preoperative cardiovascular risk assessment-RCRI risk score of 0. He has no history of CAD, CKD, CVA or diagnosis of heart failure. ECG shows a left bundle branch block. Given the low cardiac risk of carpal tunnel release surgery, he may proceed for the planned surgery without awaiting the results of his cardiac testing. 2. Exertional dyspnea / suspected atherosclerotic CAD-he is a former smoker with history of exertional shortness of breath for the last month or so. I am going to recommend an echocardiogram and pharmacological stress MPI. I will also get bilateral carotid Doppler 3. Prior tobacco abuse-will obtain US for AAA screen. 4. HTN- on losartan 25 mg po daily. No changes today. 5. Mixed Hyperlipidemia-Pa cheri is currently taking a statin. FU in 2 months 03/01/2024 Heart murmur (ICD-10 - R01.1) ECG today-normal sinus rhythm with left bundle branch block 1. Preoperative cardiovascular risk assessment-RCRI risk score of 0. He has no history of CAD, CKD, CVA or diagnosis of heart failure. ECG shows a left bundle branch block. Given the low cardiac risk of carpal tunnel release surgery, he may proceed for the planned surgery without awaiting the results of his cardiac testing. 2. Exertional dyspnea / suspected atherosclerotic CAD-he is a former smoker with history of exertional shortness of breath for the last month or so. I am going to recommend an echocardiogram and pharmacological stress MPI. I will also get bilateral carotid Doppler 3. Prior tobacco abuse-will obtain US for AAA screen. 4. HTN- on losartan 25 mg po daily. No changes today. 5. Mixed Hyperlipidemia-Terrance alonzo is currently taking a statin. FU in 2 months Plan Of Treatment Pending Test Test Name Order Date X-RAY EXAM OF HAND, 3 view-[id number] US Screening [id number] 03/01/2024 Insurance Providers Payer Name Payer Address Payer Phone Subscriber Number Group Number Insured Name Patient Relationship to Insured Coverage Start Date Coverage End Date [employer] Replacement [address] [address] [place] [address] [id number] Janusz Marquez Self - patient is the insured Medical (General) History Medical History History ICD Code prostate cancer hernia, unspecified Back Trouble High Blood Pressure bronchitis Surgical History Surgery Date(Month/Year) Tear duct back surgery unspecified 1979 appendectomy Right hand endoscopic carpal tunnel rele ase 05/26/2024 Hospitalization History Reason Date(Month/Year) ER Confusion and Hypertension 10.27.2 4 see surgery bronchitis 2013
--- NOTE | 2025-01-24 12:03 | XR_ITS ---
WS: [id number] Portable AP upright chest, 01/24/2025 Clinical Data: dyspnea/cough Comparison: Two-view chest, 06/13/2013 Findings: No nodules, masses or effusions are seen. The heart is normal. The pulmonary vascularity is not increased. No pneumonia or pneumothorax is seen. The aortic arch and descending thoracic aorta show tortuosity. XR/XR chest 1V portable [id number] Impression: Atherosclerosis.
[2025-01-24 12:56] LABS: Hematocrit 39.7 % (37-53); Hemoglobin 13.60 g/dL (11.27-16.99); Mean Corpuscular HGB Conc 34.3 g/dL (30-55); Mean Corpuscular Hemoglobin 29.8 pg (27-33); Mean Corpuscular Volume 87.1 fl (82-101); Nucleated Red Blood Cells % 0 %; Platelet Count 152 10^3/cmm (157-399); Red Blood Count 4.56 10^6/uL (3.85-5.65); White Blood Count 5.37 10^3/uL (3.29-11.43)
--- NOTE | 2025-01-24 13:22 | CT_ITS ---
WS: [id number] CT HEAD TECHNIQUE: Noncontrast CT of the head obtained from the skullbase to the vertex. CLINICAL INFORMATION: Vertigo, balance issues COMPARISON: None. DLP: 1062.[address] scans at [facility] use at least one of these dose optimization techniques: automated exposure control; mA and/or kV adjustment per patient size (includes targeted exams where dose is matched to clinical indication); or iterative reconstruction. FINDINGS: No evidence of intracranial hemorrhage or mass effect. Ventricular system and basal cisterns are patent. Moderate small vessel changes with moderate parenchymal volume loss. No extra-axial fluid collections. No evidence of mass or mass effect. Vascular calcification Paranasal sinuses and mastoid air cells are well aerated. .Normal visualized soft tissues. CT/CT head wo con* [id number] IMPRESSION: 1. No evidence of intracranial hemorrhage or mass effect. 2. No acute intracranial findings.
[2025-01-24 13:23] LABS: Alanine Aminotransferase 10 U/L (0-41); Albumin Level 4.3 g/dL (3.5-5.2); Alkaline Phosphatase 66 U/L (40-130); Anion Gap 16.4 (5-19); Aspartate Amino Transferase 16 U/L (0-40); Blood Urea Nitrogen 14 mg/dL (8-23); Calcium 9.3 mg/dL (8.5-10.5); Carbon Dioxide 22 mmol/L (22-29); Chloride 103 mmol/L (98-107); Creatinine Clr Calc Pharmacy 58.1619; Globulin 2.8 g/dL (1.3-4.6); Glucose 100 mg/dL (65-115); Osmolality Calculated 285 mOsm/kg (285-295); Potassium 4.4 mmol/L (3.5-5.1); Sodium 137 mmol/L (136-145); Total Protein 7.1 g/dL (6.6-8.7)
--- NOTE | 2025-01-24 13:31 | ED_ITS ---
HPI - General Adult 2 General: Chief complaint: General Medical Stated complaint: high bp and dizzy Time Seen by Provider: 01/24/25 12:08 History of Present Illness: 79-year-old man with a history of hypert ension, prostate cancer and mild dementia who presents emergency room with dizziness and gait issues. He says has been going on a couple of weeks and they thought it might be related to his Namenda that had just been started but even though they have discontinued he is continued to have dizzy issues. He says he almost fell over last night while he was walking. He is little bit hypertensive on presentation. says he seems a little bit confused at times as well. Currently he seems alert and oriented. No altered mental status. No focal motor deficits. No nystagmus. Denies any fevers. No chest pain. No abdominal pain. No nausea or vomiting. No focal motor deficits. Related Data Home Medications ?Medication ?Instructions ?Recorded ?Confirmed aspirin 81 mg tablet,delayed 81 mg PO DAILY 07/07/19 0 01/13/25 release cyanocobalamin (vitamin B-12) 500 500 mcg PO DAILY 01/13/25 mcg tablet lovastatin 20 mg tablet 20 mg PO DAILY 07/07/1912/18 memantine 5 mg tablet (Namenda) 5 mg PO QAM 01/13/25 0 01/13/25 Previous Rx's ?Medication ?Instructions ?Recorded losartan 25 mg tablet 25 mg PO DAILY #30 tabs 07/10 meclizine 25 mg tablet 25 mg PO QID PRN dizziness # 20 tabs 01/24/25 Allergies Allergy/AdvReac Type Severity Reaction Status Date / Time No Known Allergies Allergy Verified 01/24/25 11:49 Review of Systems 2 Narrative: Constitutional symptoms: Negative except as documented in HPI. Skin symptoms: Negative except as documented in HPI. Eye symptoms: Negative except as documented in HPI. ENMT symptoms: Negative except as documented in HPI. Respiratory symptoms: Negative except as documented in HPI. Cardiovascular symptoms: Negative except as documented in HPI. Gastrointestinal symptoms: Negative except as documented in HPI. Genitourinary symptoms: Negative except as documented in HPI. Musculoskeletal symptoms: Negative except as documented in HPI. Neurologic symptoms: Negative except as documented in HPI. Psychiatric symptoms: Negative except as documented in HPI. Endocrine symptoms: Negative except as documented in HPI. PFSH ED 2 PFSH: Medical History (Updated 01/24/25 @ 14:21 by Concepcion Herrera MD) Prostate cancer Hypogonadism in male Lower urinary tract symptoms (LUTS) Surgical History History of back surgery Hx of eye surgery History of appendectomy History of inguinal hernia repair, bilateral Family History Father , at age 69 Emphysema, unspecified Mother , at age 80 Dementia Sister Diabetes Other CAD (coronary artery disease) Social History Smoking and tobacco/nicotine status: never used tobacco/nicotine Alcohol intake: never Substance/Drug Use: never Adopted: No Caregiver/support person: No Marital status: Current occupational status: retired Physical Exam 2 Narrative: EXAM NARRATIVE: General: Alert, no acute distress. Skin: Warm, dry. Head: Normocephalic, atraumatic. Neck: Supple, trachea midline. Eye: Extraocular movements are intact. Ears, nose, mouth and throat: mucosa moist. Cardiovascular: Regular, Normal peripheral perfusion. Respiratory: Lungs are clear to auscultation, respirations are non-labored, breath sounds are equal, Symmetrical chest wall expansion. Gastrointestinal: Soft, Nontender, Non distended Musculoskeletal: Normal ROM, no deformity. Neurological: Alert and oriented, No focal neurological deficit observed. Psychiatric: Cooperative, appropriate mood & affect. Course 2 Vital Signs: Vital signs: Vital Signs Temperature 98.0 F 01/24/25 11:38 Pulse Rate 50 L 01/24/25 13:40 Respiratory Rate 16 01/24/25 13:40 Blood Pressure 175/87 01/24/25 13:40 Pulse Oximetry 100 01/24/25 13:40 Oxygen Delivery Me thod Room Air 01/24/25 13:40 [facility] - General Adult Medical Decision Making Medical decision making: Differential diagnosis including but not limited to and based on the above HPI, review of systems and physical exam: for patient with complaint of dizziness: stroke, hypotension, hypertension, infection, vertigo, orthostasis Orders placed to evaluate differential diagnosis based on the above differential, HPI and physical exam EKG: Time 11:44 AM. Rate 56. Sinus bradycardia, No ST-T changes, no ectopy, left bundle branch block, This was reviewed and interpreted by the ER physician at 11:50 AM Chest x-ray: No acute process. No infiltrate. No pneumothorax. This was reviewed and interpreted by myself the emergency room physician. I also reviewed the radiology report. CT head: Senescent changes but no acute intracranial process. no intracranial hemorrhage, no evidence of infarct. no evidence of acute fracture.This was reviewed and interpreted by myself the ER physician. Lab Review: Laboratory results were reviewed and interpreted by myself the emergency room physician. No leukocytosis. No anemia. No renal failure. Liver enzymes are normal. Urinalysis is negative for infection. I reviewed the patient's medical record. Reexamination: Patient remained stable. No increased work of breathing. No altered mental status. No focal motor deficits. Assessment and plan: Vertigo - Discharged home - Discussed plan with patient. Answered any questions. - Evaluation and treatment of this problem were appropriate in the emergency setting. Lab Data 01/24/25 12:35 01/24/25 12:35 Radiology Impressions Chest X-Ray 01/24/25 12:03 Impression: Atherosclerosis. Head CT 01/24/25 13:22 IMPRESSION: 1. No evidence of intracranial hemorrhage or mass effect. 2. No acute intracranial findings. Laboratory Results WBC 5.37 10^3/uL (3.29-11.43) 01/24/25 12:35 RBC 4.56 10^6/uL (3.85-5.65) 01/24/25 12:35 Hgb 13.60 g/dL (11.27-16.99) 01/24/25 12:35 Hct 39.7 % (37-53) 01/24/25 12:35 MCV 87.1 fl (82-101) 01/24/25 12:35 MCH 29.8 pg (27-33) 01/24/25 12:35 MCHC 34.3 g/dL (30-55) 01/24/25 12:35 RDW 13.3 % (12.1-15.1) 01/24/25 12:35 Plt Count 152 10^3/cmm (157-399) L 01/24/25 12:35 MPV 10.4 fL (7.4-10.4) 01/24/25 12:35 Neut % (Auto) 74.2 % 01/24/25 12:35 Lymph % (Auto) 17.9 % 01/24/25 12:35 [place] % (Auto) 6.0 % 01/24/25 12:35 Eos % (Auto) 1.1 % 01/24/25 12:35 Baso % (Auto) 0.6 % 01/24/25 12:35 Neut # (Auto) 3.99 10^3/uL (1.8-7.7) 01/24/25 12:35 Lymph # (Auto) 1.0 10^3/uL (0.8-4.8) 01/24/25 12:35 [place] # (Auto) 0.3 10^3/uL (0.2-0.9) 01/24/25 12:35 Eos # (Auto) 0.1 10^3/uL (0.0-0.8) 01/24/25 12:35 Baso # (Auto) 0.0 10^3/uL (0.0-0.1) 01/24/25 12:35 Nucleated RBC % (auto) 0 % 01/24/25 12:35 Nucleated RBCs # 0.0 /100WBC 01/24/25 12:35 Sodium 137 mmol/L (136-145) 01/24/25 12:35 Potassium 4.4 mmol/L (3.5-5.1) 01/24/25 12:35 Chloride 103 mmol/L (98-107) 01/24/25 12:35 Carbon Dioxide 22 mmol/L (22-29) 01/24/25 12:35 Anion Gap 16.4 (5-19) 01/24/25 12:35 BUN 14 mg/dL (8-23) 01/24/25 12:35 Creatinine 1.0 mg/dL (0.7-1.2) 01/24/25 12:35 GFR Calculation Not Reportable 01/24/25 12:35 Glucose 100 mg/dL (65-115) 01/24/25 12:35 Calculated Osmolality 285 mOsm/kg (285-295) 01/24/25 12:35 Calcium 9.3 mg/dL (8.5-10.5) 01/24/25 12:35 Total Bilirubin 0.7 mg/dL (0.15-1.2) 01/24/25 12:35 AST 16 U/L (0-40) 01/24/25 12:35 ALT 10 U/L (0-41) 01/24/25 12:35 Alkaline Phosphatase 66 U/L (40-130) 01/24/25 12:35 Total Protein 7.1 g/dL (6.6-8.7) 01/24/25 12:35 Albumin 4.3 g/dL (3.5-5.2) 01/24/25 12:35 Globulin 2.8 g/dL (1.3-4.6) 01/24/25 12:35 Urine Color Yellow (Yellow) 01/24/25 13:49 Urine Appearance Clear (CLEAR) 01/24/25 13:49 Urine pH 6.0 (5-7) 01/24/25 13:49 Ur Specific [place] 1.003 (1.005-1.030) L 01/24/25 13:49 Urine Protein Negative (Negative) 01/24/25 13:49 Urine Glucose (UA) Negative (Normal) 01/24/25 13:49 Urine Ketones Negative (Negative) 01/24/25 13:49 Urine Blood Negative (Negative) 01/24/25 13:49 Urine Nitrate Negative (Negative) 01/24/25 13:49 Urine Bilirubin Negative (Negative) 01/24/25 13:49 Urine Urobilinogen 0.2 mg/dL (Negative) 01/24/25 13:49 Ur Leukocyte Esterase Negative (Negative) 01/24/25 13:49 Amorphous Sediment Not Reportable 01/24/25 13:49 All radiology interpretation(s) finalized by discharge Discharge Plan Discharge Patient Disposition: Home Clinical Impression: Vertigo Condition: Stable Prescriptions: New meclizine 25 mg tablet 25 mg PO QID PRN (Reason: dizziness) Qty: 20 0RF No Action lovastatin 20 mg tablet 20 mg PO DAILY cyanocobalamin (vitamin B-12) 500 mcg tablet 500 mcg PO DAILY aspirin 81 mg tablet,delayed release (DR/EC) 81 mg PO DAILY memantine [Namenda] 5 mg tablet 5 mg PO QAM losartan 25 mg tablet 25 mg PO DAILY Qty: 30 6RF Discharge Orders: Discharge ED (Routine); Ordered 01/24/25 Ordered By: oCncepcion Herrera Referrals: Renu Almaraz FNP [Primary Care Provider, Nurse Practitioner] Discharge Diet: Usual diet Discharge Activity: Increase activity as tolerated Patient Instructions: Opioid Safety, Pain Management, Patient Portal & Krista Instructions Activity Restrictions/Additional Instructions: Thank you for choosing [facility] for your healthcare needs today. You have been screened and evaluated and felt safe for discharge. Health conditions do change or evolve sometimes and as such it is important that you follow up with your Primary Doctor to be re checked, 3-5 days is a general good time frame for follow up. You are always welcome to return to the ED for re assessment if your symptoms are worsening or you have new concerns Print Language: Telugu Coding Level of Care Code ED Cloth Opener Hand for Neftaly Mendez
[2025-01-24 13:40] VITALS: BP 175/87; PULSE 50; RESP 16; O2SAT 100
[2025-01-24 14:17] LABS: Glucose Urine UA Negative (Normal); Nitrate Urine Negative (Negative); Specific Gravity, Urine 1.003 (1.005-1.030)
[2025-01-24 14:23] LABS: Add Urine Microscopic? YES
[2025-01-24 14:40] VITALS: BP 160/96; PULSE 54; O2SAT 100
== END 2025-01-24 14:41 | disposition home or self-care (01) ==
PROVIDERS: Family Medicine; Emergency Provider Emergency Medicine; PCP Registered Nurse
DX: R42 Dizziness and giddiness (principal); Z79.82 Long term (current) use of aspirin; Z85.46 Personal history of malignant neoplasm of prostate
CPT/HCPCS: 36415; 70450; 71045; 80053; 81001; 85025; 93005; 99285

== ENCOUNTER → 2025-03-01 08:52 | Outpatient (BNVA) | payer MEDICARE, SELFPAY | PROVIDERS: PCP Family Medicine; Visit Provider Family Medicine | DX: E55.9 Vitamin D deficiency, unspecified (principal); C61 Malignant neoplasm of prostate; Z12.5 Encounter for screening for malignant neoplasm of prostate; R41.3 Other amnesia | CPT/HCPCS: 82306; 82607; 84153 ==

== ENCOUNTER → 2025-03-29 11:14 | Outpatient (BNVA) | payer MEDICARE, SELFPAY | PROVIDERS: PCP Family Medicine; Visit Provider Registered Nurse Neonatal Intensive Care | DX: R41.82 Altered mental status, unspecified (principal) | CPT/HCPCS: 81000; 87086 ==